=== PATIENT | female | born 2000 | race Hispanic/Latino ===

== ENCOUNTER 2018-08-15 11:38 | Emergency (ER) | payer OTHER ==
[~2018-08-15] VITALS: Ht 160 cm; Wt 68.2 kg
[~2018-08-15 11:38] MED LIST: AMOXICILLIN500 MG OR; NO HOME MEDS; TRIAMINI4 OR
[2018-08-15 12:33] VITALS: BP 132/88
== END 2018-08-15 12:33 | disposition home or self-care (01) | DRG 951 ==
LOC: ED 11:38
DX: Z20.818 Contact with and (suspected) exposure to other bacterial communicable diseases (principal)

== ENCOUNTER 2020-11-21 16:54 | Emergency (ER) | payer SELFPAY ==
[~2020-11-21] VITALS: Ht 160 cm; Wt 81.6 kg
[2020-11-21] MEDS ORDERED: MUPIROCIN21 TOP (18:51)
[2020-11-21] MEDS ORDERED: DOXYCYCL HYC100 M4 PO (18:51)
[2020-11-21 19:55] VITALS: BP 122/74
[2020-11-21] MEDS ORDERED: NO HOME MEDS (19:55)
[2020-11-23] MEDS ORDERED: DIFLUCAN150 MG PO (10:05)
== END 2020-11-21 19:55 | disposition home or self-care (01) | DRG 607 ==
LOC: ED 16:54
PROC: 0HBRXZZ Excision of Toe Nail, External Approach (ICD-10-PCS; principal; 2020-11-21)
DX: L60.0 Ingrowing nail (principal)